=== PATIENT | male | born 1985 | race Caucasian/White ===

== ENCOUNTER 2021-03-04 03:53 | Emergency (ER) | payer BC ==
[2021-03-04 04:29] VITALS: O2SAT 100
[2021-03-04] MEDS ORDERED: Visine OPHTHALMIC 15 ML OP SCH (05:00)
[2021-03-04] MEDS ORDERED: TETRACAINE 0.5% STERI-UNIT SOL OP ONE (05:01)
[2021-03-04] MEDS ORDERED: TETRACAINE 0.5% STERI-UNIT SOL OP STA (05:05)
[2021-03-04] MEDS ORDERED: Cortisporin Eye Drops OP ONE (06:04)
--- NOTE | 2021-03-04 06:13 | ERPHSYRPT ---
- History of Present Illness Time Seen by Provider: 03/04/21 04:50 Source: patient Patient Subjective Stated Complaint: The patient states that he took his contacts out and went to bed as usual with no eye issues, but woke around 0330 to feeling like he had something in his eyes. Originally both eyes were affected, but his left eye eventually felt better besides being watery. His right eye, however; has a stabbing sensation and is painful to move. The patient cannot open his eye without severe pain. Triage Nursing Assessment: The patient is alert and oriented. The patient's orbital area of both eyes looks red and swollen. The patient is unable to open his right eye without severe pain. Any movement of the eye causes severe pain. The patient describes the pain as stabbing and feels like there might be something in his eye. Physician History: This is a 35-year-old white male who presents with bilateral eye pain right greater than left. He took his contacts out earlier in the evening without any issues. He began having eye pain that was stabbing right eye pain and also his left eye but the left eye began feeling better. He has no change per se in his vision other than the contacts are not in but he started having watering of the eyes. He denies any new exposures. These are not new contacts and he is using the same old solution that he has used in the past. He has not had any type of direct eye injury and has not been exposed any type of welding. He has not been exposed to any type of chemicals. This is never happened to him in the past. Timing/Duration: today Location: bilateral eyes Severity: moderate Apparent Injury: no Associated Symptoms: burning, sensitivity to light, redness Visual Assistive Devices: Contacts (They are both out at this time) Chemical Exposure: No Trauma: No Welding Arc/Tanning Bed Exposure: No Allergies/Adverse Reactions: No Known Drug Allergies Allergy (Unverified 03/04/21 04:40) Home Medications: Lisinopril 5 mg [Zestril 5 MG] 5 mg PO HS 03/04/21 [History] Hx Tetanus, Diphtheria Vaccination/Date Given: Yes Hx Influenza Vaccination/Date Given: Yes Hx Pneumococcal Vaccination/Date Given: No Immunizations Up to Date: Yes Travel Risk - International Travel Have you traveled outside of the country in past 3 weeks: No - Coronavirus Screening Are you exhibiting any of the following symptoms?: No Close contact with a COVID-19 positive Pt in past 14-21 Days: No - Vaccine Status Have you recieved a Covid-19 vaccination: Yes Rn Progressive Care: Ready - Vaccination Dates Date of 2cond Vaccination (if applicable): May 2020 Comment: Booster on 02/27/21 - Review of Systems Constitutional: No Symptoms Eyes: Eye Pain, Eye Redness, Foreign Body Sensation Ears, Nose, & Throat: No Symptoms Respiratory: No Symptoms Cardiac: No Symptoms Abdominal/Gastrointestinal: No Symptoms Genitourinary Symptoms: No Symptoms Musculoskeletal: No Symptoms Skin: No Symptoms Neurological: No Symptoms Psychological: No Symptoms Endocrine: No Symptoms Hematologic/Lymphatic: No Symptoms Immunological/Allergic: No Symptoms All Other Systems: Reviewed and Negative - Past Medical History Pertinent Past Medical History: Yes Neurological History: No Pertinent History ENT History: No Pertinent History Cardiac History: Hypertension Respiratory History: No Pertinent History Endocrine Medical History: No Pertinent History Musculoskeletal History: No Pertinent History GI Medical History: Other History: No Pertinent History Psycho-Social History: No Pertinent History Male Reproductive Disorders: No Pertinent History Other Medical History: Acid reflux - Past Surgical History Past Surgical History: Yes Neuro Surgical History: No Pertinent History Cardiac: No Pertinent History Respiratory: No Pertinent History Gastrointestinal: No Pertinent History Genitourinary: No Pertinent History Musculoskeletal: Orthopedic Surgery Male Surgical History: No Pertinent History Other Surgical History: left ankle fusion - Social History Smoking Status: Never smoker Exposure to second hand smoke: No Drug Use: none Patient Lives Alone: No - Nursing Vital Signs Nursing Vital Signs: Initial Vital Signs Temperature 97.7 F 03/04/21 04:28 Pulse Rate 95 H 03/04/21 04:28 Respiratory Rate 18 03/04/21 04:28 Blood Pressure 158/105 03/04/21 04:28 O2 Sat by Pulse Oximetry 100 03/04/21 04:28 Pain Scale Pain Intensity 9 - Physical Exam General Appearance: mild distress, alert, anxiety, obese Intraocular Pressure (Tonopen): both eyes (Could not locate.) Eye Exam: bilateral eye: PERRL, EOMI, conjunctival inflammation Ears, Nose, Throat Exam: normal ENT inspection, moist mucous membranes Neck Exam: normal inspection, non-tender, supple, full range of motion Respiratory Exam: normal breath sounds, lungs clear, airway intact, No chest tenderness, No respiratory distress Gastrointestinal Exam: No tenderness Extremity Exam: normal inspection, normal range of motion, pelvis stable Neurologic: alert, oriented x 3, cooperative, data communications technician II-XII nml as tested, normal mood/affect, nml cerebellar function, nml station & gait Skin Exam: normal color, warm, dry Lymphatic: No adenopathy SpO2 Interpretation: normal SpO2: 100 O2 Delivery: Room Air - Course Nursing assessment & vital signs reviewed: Yes Ordered Tests: Medication Summary Discontinued Medications Generic Name Dose Route Start Last Admin Trade Name Freq PRN Reason Stop Dose Admin Neomycin/Polymyxin/Hydrocortisone Confirm 03/04/21 06:04 Neomy Sulf/Polymyx B Sulf/Hc 7.5 Ml Bottle Administered 03/04/21 06:05 Dose 7.5 ml OP .STK-MED ONE Tetracaine HCl Confirm 03/04/21 05:01 Tetracaine Hcl/Pf 4 Ml Bottle Administered 03/04/21 05:02 Dose 4 ml OP .STK-MED ONE Tetracaine HCl 4 ml 03/04/21 05:05 03/04/21 05:09 Tetracaine Hcl/Pf 4 Ml Bottle OP 03/04/21 05:06 4 ml STAT STA Administration Tetrahydrozoline HCl 1 ml 03/04/21 05:00 Tetrahydrozoline Hcl 15 Ml Bottle Eye Drops OP 04/03/21 04:59 1XONLY LASHELL - Progress Progress: improved, pain not gone completely Counseled pt/family regarding: diagnosis, need for follow-up - Departure Departure Disposition: Home Clinical Impression: Bilateral conjunctivitis Condition: Stable Critical Care Time: No Referrals: JOLIE BUSCH MD [Primary Care Provider] - Follow up/PCP as directed Additional Instructions: Take the medication as prescribed. Call the [facility] this morning after 8:30 in the morning to obtain a follow-up appointment today. Keep your contacts out of your eyes until you are cleared by the project manager process development to put them back in. Prescriptions: Hydrocodone/APAP 5/325 [[place] 5/325 mg] 1 each PO Q6H PRN PRN #6 tablet MDD 4 PRN Reason: Pain Neomycin/Polymyxin B/Hydrocort [[id number] Eye Drops] 2 drops OP Q3H #7.5 ml
[2021-03-04] MEDS ORDERED: NORCO 5/325 MG PO ONE (06:20)
[2021-03-04] MEDS ORDERED: NORCO 5/325 MG ONE (06:23)
[2021-03-04] MEDS ORDERED: NEOSPORIN OPTH OP ONE (06:25)
[2021-03-04 06:53] VITALS: BP 145/92; PULSE 69
[2021-03-04] MEDS ORDERED: Cortisporin Eye Drops OP SCH (07:00)
== END 2021-03-04 06:40 | disposition home or self-care (01) ==
LOC: ED 03:53
DX: H10.33 Unspecified acute conjunctivitis, bilateral (principal); I10 Essential (primary) hypertension; Z79.891 Long term (current) use of opiate analgesic
CPT/HCPCS: 99283; A9270-GY